=== PATIENT | female | born 1970 | race Caucasian/White ===

== ENCOUNTER 2017-05-15 20:09 | Emergency (ER) | payer OTHER ==
[~2017-05-15] VITALS: Ht 165.1 cm; Wt 60.2 kg
[2017-05-15] MEDS ORDERED: KEFLEX500 MG PO (21:11)
[2017-05-15] MEDS ORDERED: VALTREX1000 MG PO (21:11)
[2017-05-15 22:07] VITALS: BP 115/79
== END 2017-05-15 22:08 | disposition home or self-care (01) ==
LOC: EXP 20:09 → EME 20:09 → EXP 22:08
DX: L98.9 Disorder of the skin and subcutaneous tissue, unspecified (principal)
CPT/HCPCS: 99281; 99284